=== PATIENT | male | born 1980 | race Caucasian/White ===

== ENCOUNTER 2020-11-09 12:58 | Emergency (ER) | payer OTHER, SELFPAY ==
[2020-11-09 13:04] VITALS: BP 140/83; PULSE 87; RESP 14; TEMP 36.7; O2SAT 100
[2020-11-09 13:13] VITALS: BP 140/83; PULSE 87; RESP 14; TEMP 36.7; O2SAT 100
--- NOTE | 2020-11-09 13:16 | ED.SKABFB ---
HPI - Skin/Abscess/Foreign Bdy General Chief complaint: Skin/Abscess/Foreign Body Stated complaint: right ankle boil Source: patient Mode of arrival: ambulatory Limitations: no limitations History of Present Illness HPI narrative: Patient is a 40-year-old male who presents complaining of abscess to right ankle. Patient reports abscess x2 weeks, with increasing redness and tenderness over the past day. Patient reports you and his have been intermittently squeezing area with drainage of pus at times. He denies fever, chills or body aches. He denies all other complaints at this time. complaint: abscess/boil Related Data Allergies Allergy/AdvReac Type Severity Reaction Status Date / Time Penicillins Allergy Unknown hives Verified 11/09/20 13:13 Review of Systems Review of Systems: Narrative: CONSTITUTIONAL: Denies fever, chills, or sweats. EYES: Denies visual changes, redness, or discharge. ENT: Denies rhinorrhea, congestion, sore throat, or otalgia. CARDIOVASCULAR: Denies chest pain, palpitations, or edema. RESPIRATORY: Denies cough or dyspnea. GASTROINTESTINAL: Denies abdominal pain, nausea, vomiting, or diarrhea. GENITOURINARY: Denies dysuria or hematuria. SKIN: Reports abscess to right lower extremity x2-week MUSCULOSKELETAL: Denies back pain, joint pain, or myalgia. NEUROLOGIC: Denies headache, numbness, dizziness, or weakness. PSYCHIATRIC: Denies anxiety or depression. [facility] Social History Social History (Updated 11/09/20 @ 13:19 by TERENCE Childs) Smoking status: Current every day smoker Tobacco type: cigarettes Alcohol intake: current Alcohol use details: Occasional Substance use: never Living arrangements: with family Comments At the time of signature, I have reviewed and agree with nursing past medical, surgical, social, and family history unless otherwise noted. Please see nursing chart for further information. There is no relevant family history pertinent to the presenting complaint. Exam Narrative: Exam Narrative: GENERAL: Well-appearing, well-nourished, and in no acute distress. HEAD: Normocephalic, atraumatic. EYES: EOMI. No redness or drainage. Conjunctiva are normal. ENT: Mucous membranes pink and moist. CHEST: No respiratory distress. HEART: Regular rate and rhythm. EXTREMITIES: Normal range of motion. No edema. SKIN: Approximate 3 x 3 cm area of erythema and warmth to right medial lower leg, area of fluctuation and induration at center. NEURO: No focal deficits. Alert and oriented x3. Gait steady. PSYCH: Normal affect. No signs of depression or anxiety. Course Vital Signs Vital signs: Vital Signs Temperature 36.7 C 11/09/20 13:04 Pulse Rate 87 11/09/20 13:04 Respiratory Rate 14 11/09/20 13:04 Blood Pressure 140/83 11/09/20 13:04 Pulse Oximetry 100 11/09/20 13:04 Temperature 36.7 C 11/09/20 13:13 Pulse Rate 87 11/09/20 13:13 Respiratory Rate 14 11/09/20 13:13 Blood Pressure 140/83 11/09/20 13:13 Pulse Oximetry 100 11/09/20 13:13 Reviewed. Patient has been instructed to follow-up with his PCP regarding his blood pressure. Procedures Abscess I/D lower extremity: Date of Incision: 11/09/20 Time of Incision: 13:35 Side (if applicable): right Sedation/analgesia: none Local Anesthetic: lidocaine 1% Amount of anesthesia used (mL): 4 Technique: incised with #11 blade Amount of fluid expressed (mL): 2 Irrigation: Yes Packing used?: plain I&D Results: Pus and Blood Abcess I&D Additional Comments: 4 x 4 and tape as dressing. Wound care discussed with patient and family. MDM - Skin/Abscess/Foreign Bdy MDM Narrative Medical decision making narrative: Incision and drainage performed on patient's right lower extremity. Discussed wound care. Patient started on antibiotics at this time for surrounding cellulitis. Patient is aware of red flags and if there
== END 2020-11-09 13:45 | disposition home or self-care (01) ==
PROVIDERS: Emergency Provider Nurse Practitioner; PCP Internal Medicine
DX: L03.115 Cellulitis of right lower limb (principal); L02.415 Cutaneous abscess of right lower limb; F17.210 Nicotine dependence, cigarettes, uncomplicated
CPT/HCPCS: 10061; 87070; 87205; 99213; G0463

== ENCOUNTER → 2022-06-11 10:02 | Outpatient (CLI) | payer OTHER, SELFPAY ==
--- NOTE | ~2022-06-11 | XR_ITS ---
Clinical Indication: Pneumonia, cough PA and lateral views of the chest: Comparison: None Findings: The lungs are clear, without evidence of focal consolidation or pleural effusion. Possible COPD. Cardiomediastinal silhouette is within normal limits. Bones and soft tissues are unremarkable. Impression: Possible COPD. Clear lungs. Reviewed, dictated and finalized at location . [facility] Impression: Possible COPD. Clear lungs.
== END ==
PROVIDERS: PCP Family Medicine; Visit Provider Family Medicine
DX: J39.8 Other specified diseases of upper respiratory tract (principal)
CPT/HCPCS: 71046

== ENCOUNTER 2023-01-07 09:21 | Emergency (ER) | payer BC, SELFPAY ==
--- NOTE | ~2023-01-07 | XR_ITS ---
EXAMINATION: XR chest 2V DATE: 01/07/2023 10:38 INDICATION: Dizziness TECHNIQUE: PA and lateral views of the chest are obtained. COMPARISON: 06/11/2022 FINDINGS: The lungs are free of acute opacities. No pleural effusion or pneumothorax. The cardiomedia stinal silhouette is normal. The visualized bones and soft tissues are unremarkable. IMPRESSION: 1. No acute cardiopulmonary abnormality. Reviewed, dictated and finalized at location L.
[2023-01-07 09:32] VITALS: BP 139/88; PULSE 71; RESP 20; TEMP 36.7; O2SAT 100
--- NOTE | 2023-01-07 09:57 | ED.DIZZY ---
HPI - Dizziness General Chief Complaint: Dizziness Stated Complaint: Dizziness Time Seen by Provider: 01/07/23 10:00 Source: patient Mode of arrival: ambulatory Limitations: no limitations History of Present Illness HPI Narrative: 42-year-old male with a history of COPD presented for complaint of waking in the morning with dizziness and fatigue since yesterday. [place] in to work. He states he rested and felt somewhat better yesterday evening. Today he endorses waking feeling dizzy, headache, body aches, and fatigue. Denies chest pain, palpitations, shortness of breath from baseline, nausea, vomiting or diarrhea. He has not taken anything for symptoms. He states he is concerned about his blood pressure and blood sugar. Related Data Allergies Allergy/AdvReac Type Severity Reaction Status Date / Time Penicillins Allergy Unknown hives Verified 01/07/23 09:53 Review of Systems Review of Systems: CONSTITUTIONAL: Reports fatigue Denies body aches, fever, chills, or sweats. EYES: Denies visual changes, redness, or discharge. ENT: Denies rhinorrhea, congestion, sore throat, or otalgia. CARDIOVASCULAR: Denies chest pain, palpitations, or edema. RESPIRATORY: Reports cough, denies sob, wheezing. GASTROINTESTINAL: Denies abdominal pain, nausea, vomiting, or diarrhea. GENITOURINARY: Denies dysuria or hematuria. SKIN: Denies rash, itching, or wounds. MUSCULOSKELETAL: Denies back pain, joint pain, or myalgia. NEUROLOGIC: Reports dizziness Denies headache, numbness, tingling, or weakness. All systems reviewed & are unremarkable except as noted in HPI and below [facility] Past Medical History Medical History (Updated 01/07/23 @ 11:08 by Daisy Farias APRN) COPD (chronic obstructive pulmonary disease) Nicotine dependence, cigarettes, uncomplicated Family History Family History Sibling Cerebrovascular accident Social History Social History Social History: Caffeine-coffee/soda Smoking packs per day: 1 Smoking cigarettes per day: 20.0 Years smoked: 27 Smoking pack-years: 27.00 Smoking status: Current every day smoker Tobacco type: cigarettes Alcohol intake: current Alcohol use details: 6-8 drinks nightly beer. Substance use: never Lack of Transportation: No Lack of Food: Never True Current Housing: I Have Housing Concerned About Future Housing: No Difficulty Paying Gas/Electric Bills: No Difficulty Paying for Meds: No Currently Unemployed: No Education: High School Diploma/GED Difficulty w/ Childcare or Family Care: No Living arrangements: with family Comments At time of signature, I have reviewed and agree with nursing past medical, surgical, social and family history unless otherwise noted. Please see nursing chart for further information. There is no relevant family history pertinent to the presenting complaint Exam Narrative: GENERAL: mildly ill-appearing, in no acute distress. Appears older than stated age EYES: EOMI. No redness or drainage. Conjunctivae normal. ENT: Mucous membranes pink and moist. No rhinorrhea. TMs normal bilaterally. Throat normal. Uvula midline. NECK: Normal AROM. Supple. CHEST: No respiratory distress. Coarse with wheezing to all [place]. No cough. Speaks full sentences. HEART: Regular rate and rhythm. No murmur appreciated. ABDOMEN: Soft, nontender, nondistended, normal active bowel sounds. EXTREMITIES: Normal range of motion. No edema. SKIN: Warm, dry, no rash. Capillary refill normal. Normal skin turgor. NEURO: Alert and oriented x3. Gait steady. Course Course Emergency Course: Patient is aware of diagnosis, understands and agrees to treatment plan. Anticipatory guidance given. Patient agrees to follow-up as directed and is aware o
--- NOTE | 2023-01-07 10:11 | ECG_ITS ---
Measurements Intervals [place] Rate: 69 P: 69 UT: 116 QRS: 68 QRSD: 88 T: 72 QT: 351 QTc: 377 Interpretive Statements SINUS RHYTHM WITH SHORT UT INTERVAL NORMAL ELECTROCARDIOGRAM NO PREVIOUS ECG AVAILABLE FOR COMPARISON Electronically Signed On 01-07-2023 14:32:14 CDT by Reji Faustin M.D.
[2023-01-07 10:17] LABS: Glucose Point of Care 86 mg/dl (65-105)
== END 2023-01-07 11:11 | disposition home or self-care (01) ==
PROVIDERS: Emergency Provider Nurse Practitioner Family; PCP Family Medicine
DX: R42 Dizziness and giddiness (principal); J40 Bronchitis, not specified as acute or chronic; F17.210 Nicotine dependence, cigarettes, uncomplicated; J44.9 Chronic obstructive pulmonary disease, unspecified
CPT/HCPCS: 71046; 82948; 93005; 99213; G0463

== ENCOUNTER 2023-06-18 10:11 | Outpatient (CLI) | payer BC, SELFPAY ==
[2023-06-18 12:14] LABS: Basophils Absolute Auto 0.1 K/mm3 (0.0-0.1); Basophils Percent Auto 0.8 % (0.2-1.2); Eosinophils Absolute Auto 0.1 K/mm3 (0-0.3); Eosinophils Percent Auto 1.4 % (0-4.4); Hemoglobin 16.7 g/dL (14.0-18.0); Immature Granulocyte Absolute 0.02 K/mm3 (0.00-0.031); Immature Granulocyte Percent A 0.3 % (0-0.5); Lymphocytes Absolute Auto 1.43 K/mm3 (0.9-3.2); Lymphocytes Percent Auto 22.6 % (18.3-44.2); Mean Corpuscular HGB Conc 34.1 g/dl (32-36); Mean Corpuscular Hemoglobin 33.5 pg (26-34); Mean Corpuscular Volume 98.4 fl (80-100); Mean Platelet Volume 11.4 fl (7.4-10.4); Monocytes Absolute Auto 0.7 K/mm3 (0.1-0.6); Monocytes Percent Auto 11.4 % (2.6-8.5); Neutrophils Percent Auto 63.5 % (45.5-73.1); Platelet Count Result 288 k/mm3 (150-375); Red Blood Count 4.98 M/mm3 (4.6-6.20); Red Cell Distribution Width 12.2 % (11.5-14.5); White Blood Count 6.3 K/mm3 (4.5-10.0)
[2023-06-18 12:18] LABS: Alanine Aminotransferase 20 U/L (6-50); Albumin Level 4.4 g/dL (3.5-5.1); Alkaline Phosphatase 56 U/L (38-126); Anion Gap 4 mmol/L (8-16); Aspartate Amino Transferase 57 U/L (17-59); Bilirubin,Total 0.8 mg/dL (0.2-1.3); Blood Urea Nitrogen 7 mg/dL (9-20); Calcium 9.4 mg/dL (8.4-10.2); Carbon Dioxide 31 mmol/L (22-30); Chloride 103 mmol/L (98-107); Cholesterol 137 mg/dL (0-200); Estimated Glomerular Filt Rate > 60; Glucose 102 mg/dL (65-110); HDL Direct 88 mg/dL; Potassium 4.6 mmol/L (3.4-5.0); Sodium 138 mmol/L (137-145); Triglycerides < 30 mg/dL (<150)
[2023-06-18 12:29] LABS: LDL Cholesterol Direct 38 mg/dL
[2023-06-18 13:52] LABS: Thyroid Stimulating Hormone Reflex 0.346 uIU/mL (0.465-4.68)
[2023-06-18 16:33] LABS: Total Triiodothyronine (T3) 1.48 NG/ML (0.97-1.69)
== END 2023-06-18 10:12 | disposition home or self-care (01) ==
LOC: ANHGOSHLAB 10:12
PROVIDERS: PCP Family Medicine; Visit Provider Family Medicine
DX: Z13.228 Encounter for screening for other metabolic disorders (principal); Z13.29 Encounter for screening for other suspected endocrine disorder; Z13.220 Encounter for screening for lipoid disorders; R53.83 Other fatigue
CPT/HCPCS: 36415; 80053; 80061; 84439; 84443; 84480; 85025

== ENCOUNTER 2024-01-14 11:00 | Outpatient (CLI) | payer BC, SELFPAY ==
[2024-01-14 15:19] LABS: Thyroid Stimulating Hormone 0.422 uIU/mL (0.465-4.680)
[2024-01-14 15:52] LABS: Free T4 Free Thyroxine 0.98 ng/mL (0.78-2.19)
[2024-01-24 20:28] LABS: Thyroid Stimulating Immunoglob <89 % baseline (<140)
[2024-01-25 18:30] LABS: Thyrotropin Receptor Antibody <1.00 IU/L (< OR = 2.00)
== END 2024-01-14 11:01 | disposition home or self-care (01) ==
LOC: ANHGOSHLAB 11:01
PROVIDERS: PCP Family Medicine; Visit Provider Family Medicine
DX: E05.90 Thyrotoxicosis, unspecified without thyrotoxic crisis or storm (principal)
CPT/HCPCS: 36415; 83519; 84439; 84443; 84445

== ENCOUNTER 2024-02-04 11:47 | Emergency (ER) | payer BC, SELFPAY ==
[2024-02-04 11:52] VITALS: BP 135/78; PULSE 70; RESP 16; TEMP 36.8; O2SAT 99
--- NOTE | 2024-02-04 14:17 | ED.BACK ---
HPI - Back Pain/Injury General Chief Complaint: Back Pain/Injury Stated Complaint: Low Back Pain/Right Side Time Seen by Provider: 02/04/24 11:59 Source: patient and RN notes reviewed Mode of arrival: ambulatory Limitations: no limitations History of Present Illness HPI Narrative: Patient presents today complaining of right low back pain x1 week. He denies injury or trauma. He does report some occasional dysuria, which he states can happen if he does not drink enough water. Denies radiation of the pain to his legs or abdomen. Denies concerns for sexually transmitted infections. Denies hematuria, frequency, urgency. Patient has tried some Tylenol and Aleve with some mild relief. Currently rates his pain 2/10, which increases when he lays flat. Related Data Allergies Allergy/AdvReac Type Severity Reaction Status Date / Time Penicillins Allergy Unknown hives Verified 02/04/24 12:18 Review of Systems Review of Systems: CONSTITUTIONAL: Denies body aches, fever, chills, or sweats. EYES: Denies visual changes, redness, or discharge. ENT: Denies rhinorrhea, congestion, sore throat, or otalgia. CARDIOVASCULAR: Denies chest pain, palpitations, or edema. RESPIRATORY: Denies cough or dyspnea. GASTROINTESTINAL: Denies abdominal pain, nausea, vomiting, or diarrhea. GENITOURINARY: Denies hematuria.+ occasional dysuria SKIN: Denies rash, itching, or wounds. MUSCULOSKELETAL: Denies joint pain, or myalgia.+ back pain NEUROLOGIC: Denies headache, numbness, tingling, or weakness. PSYCH: Denies depression or anxiety. [facility] Past Medical History Medical History COPD (chronic obstructive pulmonary disease) Nicotine dependence, cigarettes, uncomplicated Family History Family History Sibling Cerebrovascular accident Social History Social History Social History: Caffeine-coffee/soda Smoking packs per day: 1 Smoking cigarettes per day: 20.0 Years smoked: 27 Smoking pack-years: 27.00 Smoking status: Current every day smoker Tobacco type: cigarettes Alcohol intake: current Alcohol use details: 6 drinks nightly beer. Substance use: never Substance use type: does not use Lack of Transportation: No Lack of Food: Never True Current Housing: I Have Housing Concerned About Future Housing: No Difficulty Paying Gas/Electric Bills: No Difficulty Paying for Meds: No Currently Unemployed: No Education: High School Diploma/GED Difficulty w/ Childcare or Family Care: No Living arrangements: with family Comments At time of signature, I have reviewed and agree with nursing past medical, surgical, social and family history unless otherwise noted. Please see nursing chart for further information. There is no relevant family history pertinent to the presenting complaint Exam Narrative: GENERAL: Well-appearing, well-nourished, and in no acute distress. HEAD: Normocephalic, atraumatic. EYES: EOMI. No redness or drainage. Conjunctivae normal. ENT: Mucous membranes pink and moist. NECK: Normal AROM. CHEST: No respiratory distress. MUSCULOSKELETAL: No bony tenderness of the thoracic or lumbar spine. Tenderness to the right lower lumbar paraspinal muscles. No tenderness to the left. No tenderness to the SI joints. Distal sensation intact. Saddle sensation intact. Capillary refill normal. Plantar flexion and dorsiflexion equal and strong against resistance. Patellar reflexes normal. EXTREMITIES: Normal range of motion. No edema. SKIN: Warm, dry, no rash. Capillary refill normal. Normal skin turgor. NEURO: No focal deficits. Alert and oriented x3. Gait steady. PSYCH: Normal affect. No signs of depression or anxiety. Course Course Level of Care: Express Care Visit Vital Signs Vital signs: Vital Signs Temperatur
[2024-02-07 14:24] LABS: EDUAAPPEAR Clear; EDUABILI Negative (Negative); EDUABLOOD Negative (Negative); EDUACOLOR1 Yellow; EDUAGLUCOSE Negative (Negative); EDUAKETONE Negative (Negative); EDUALEUKO Negative (Negative); EDUANITRATE Negative (Negative); EDUAPROTEIN Negative (Negative); EDUAUROBILI 0.2
== END 2024-02-04 12:28 | disposition home or self-care (01) ==
PROVIDERS: Emergency Provider Nurse Practitioner; PCP Family Medicine
DX: S39.012A Strain of muscle, fascia and tendon of lower back, initial encounter (principal); X58.XXXA Exposure to other specified factors, initial encounter; J44.9 Chronic obstructive pulmonary disease, unspecified; F17.210 Nicotine dependence, cigarettes, uncomplicated
CPT/HCPCS: 81003; 99213; G0463

== ENCOUNTER 2024-04-16 09:16 | Emergency (ER) | payer BC, SELFPAY ==
--- NOTE | ~2024-04-16 | XR_ITS ---
EXAMINATION: XR chest 2V DATE: 04/16/2024 10:04 INDICATION: Cough. TECHNIQUE: Frontal and lateral views of the chest were obtained on 3 radiographs. COMPARISON: Chest 2 views 12/28/2022 FINDINGS: There is no pneumonia, pleural effusion, or pneumothorax. The heart size is normal. IMPRESSION: 1. No acute cardiopulmonary disease. Reviewed, dictated and finalized at location A. [facility]
[2024-04-16 09:27] VITALS: BP 113/79; PULSE 81; RESP 20; TEMP 36.8; O2SAT 98
--- NOTE | 2024-04-16 10:15 | ED.GENADULT ---
HPI - General Adult General Chief complaint: Upper Respiratory Infection Stated complaint: Tightness in Chest/Cough Source: patient Mode of arrival: ambulatory Limitations: no limitations History of Present Illness HPI narrative: Patient presents for evaluation of sick symptoms. Symptom onset 3 days ago. Symptoms include cough, shortness of breath, hot flashes and chills. No nausea, vomiting, diarrhea, sore throat. No recent sick contacts to his knowledge. He smokes 1 pack per day. He has an underlying history of emphysema. He has been using an albuterol inhaler for his symptoms. Related Data Home Medications Medication Instructions Recorded Confirmed albuterol sulfate 90 mcg/actuation 2 puff inhalation QID PRN 04/16/24 04/16/24 aerosol inhaler Shortness Of Breath Or Wheezing fluticasone fur. 200 mcg-umeclid 1 inh inhalation DAILY 04/16/24 04/16/24 62.5 mcg-vilant 25 mcg inhalat.powder (Trelegy Ellipta) umeclidinium 62.5 mcg-vilanterol 1 inh inhalation DAILY 04/16/24 04/16/24 25 mcg/actuation powdr for inhalation (Anoro Ellipta) Allergies Allergy/AdvReac Type Severity Reaction Status Date / Time Penicillins Allergy Unknown hives Verified 04/16/24 09:37 Review of Systems Review of Systems: CONSTITUTIONAL: Reports hot flashes and chills EYES: Denies visual changes, redness, or discharge. ENT: Denies rhinorrhea, congestion, sore throat, or otalgia. CARDIOVASCULAR: Denies chest pain, palpitations, or edema. RESPIRATORY: Reports cough and shortness of breath. GASTROINTESTINAL: Denies abdominal pain, nausea, vomiting, or diarrhea. GENITOURINARY: Denies dysuria or hematuria. SKIN: Denies rash or itching. MUSCULOSKELETAL: Denies back pain, joint pain, or myalgia. NEUROLOGIC: Denies headache, numbness, dizziness, or weakness. PSYCHIATRIC: Denies anxiety or depression. [facility] Past Medical History Medical History COPD (chronic obstructive pulmonary disease) Nicotine dependence, cigarettes, uncomplicated Surgical History Surgical History No pertinent past surgical history Family History Family History Sibling Cerebrovascular accident Social History Social History Social History: Caffeine-coffee/soda Smoking packs per day: 1 Smoking cigarettes per day: 20.0 Years smoked: 27 Smoking pack-years: 27.00 Smoking status: Current every day smoker Tobacco type: cigarettes Alcohol intake: current Alcohol use details: 6 drinks nightly beer. Substance use: never Substance use type: does not use Lack of Transportation: No Lack of Food: Never True Current Housing: I Have Housing Concerned About Future Housing: No Difficulty Paying Gas/Electric Bills: No Difficulty Paying for Meds: No Currently Unemployed: No Education: High School Diploma/GED Difficulty w/ Childcare or Family Care: No Living arrangements: with family Exam Narrative: GENERAL: Well-appearing, well-nourished, and in no acute distress. HEAD: Normocephalic, atraumatic. EYES: PERRLA and EOMI. ENT: Nares clear, no rhinorrhea or epistaxis. Mucous membranes moist. Oropharynx without tonsillar hypertrophy exudate or other lesions. Bilateral TMs pearly hayes nonbulging NECK: Supple. No adenopathy or masses. No carotid bruits or JVD CHEST: wheezing and rales noted on exam. Cough present HEART: Regular rate and rhythm. No murmur heard. Normal peripheral pulses. ABDOMEN: Soft, nontender, nondistended, normal active bowel sounds. EXTREMITIES: Normal range of motion. No edema. SKIN: Warm, dry, no rash. NEURO: No focal deficits. Alert and oriented x3. PSYCH: Normal mood and affect. Course Course Emergency Course: This is a 44-year-old male who presented for evaluation of respiratory symptoms. Chest x-ray was negative. His exam is consistent with exacerbation of his emphysema. He was given Solu-Medrol and a breathing treatment here. He became little jittery. I offered to monitor him here but he requested his discharge papers. Will discharge with prednisone and doxycycline due to his smoking status. He was advised not to smoke. He should follow up with PCP. He has albuterol at home. Go to the ER for worsening symptoms. Pt in agreement with plan of care. Level of Care: Express Care Visit Vital Signs Vital signs: Vital Signs Temperature 36.8 C 04/16/24 09:27 Pulse Rate 81 04/16/24 09:27 Respiratory Rate 20 04/16/24 09:27 Blood Pressure 113/79 04/16/24 09:27 Pulse Oximetry 98 04/16/24 09:27 Temperature 36.8 C 04/16/24 09:27 Pulse Rate 81 04/16/24 09:27 Respiratory Rate 20 04/16/24 09:27 Blood Pressure 113/79 04/16/24 09:27 Pulse Oximetry 98 04/16/24 09:27 Medical Decision Making Vital Signs Vital Signs: Vital Signs Temperature 36.8 C 04/16/24 09:27 Pulse Rate 81 04/16/24 09:27 Respiratory Rate 20 04/16/24 09:27 Blood Pressure 113/79 04/16/24 09:27 Pulse Oximetry 98 04/16/24 09:27 Temperature 36.8 C 04/16/24 09:27 Pulse Rate 81 04/16/24 09:27 Respiratory Rate 20 04/16/24 09:27 Blood Pressure 113/79 04/16/24 09:27 Pulse Oximetry 98 04/16/24 09:27 Imaging Data Radiologist's impression: EXAMINATION: XR chest 2V DATE: 04/16/2024 10:04 INDICATION: Cough. TECHNIQUE: Frontal and lateral views of the chest were obtained on 3 radiographs. COMPARISON: Chest 2 views 12/28/2022 FINDINGS: There is no pneumonia, pleural effusion, or pneumothorax. The heart size is normal. IMPRESSION: 1. No acute cardiopulmonary disease. Discharge Plan Discharge Clinical Impression: Acute exacerbation of emphysema Patient Disposition: Home, Self-Care Condition: Stable Instructions: Antibiotic Form, How to Stop Smoking (ED), Emphysema (DC) Patient Language: Welsh Prescriptions: New doxycycline hyclate 100 mg capsule 100 mg PO BID Qty: 20 0RF prednisone 50 mg tablet 50 mg PO DAILY Qty: 5 0RF No Action albuterol sulfate 90 mcg/actuation Hfa Aerosol Inhaler 2 puff INHALATION QID PRN (Reason: Shortness Of Breath Or Wheezing) Trelegy Ellipta 200-62.5-25 mcg Blister With Device 1 inh INHALATION DAILY Anoro Ellipta 62.5-25 mcg/actuation Blister With Device 1 inh INHALATION DAILY Follow-up/Referrals: Lamont Sandhu, [Primary Care Provider] - Time of Disposition: 10:52
[2024-04-16] MEDS: methylPREDNISolone SOD SUCC 125 MG VIAL IM (10:25)
--- NOTE | 2024-04-16 10:25 | PC.NURSE ---
PT SHAKY DURING TREATMENT AND FEELS SWEATY. REMOVED SWEATSHIRT. TEMP 98.0 AND BP 124/96
[2024-04-16] MEDS: IPRATROPIUM 0.5 MG/ALBUTEROL SULFATE 2.5 MG AMPUL.NEB 3 ML INHALATION (10:26)
== END 2024-04-16 10:55 | disposition home or self-care (01) ==
PROVIDERS: Emergency Provider Nurse Practitioner; PCP Family Medicine
DX: J44.1 Chronic obstructive pulmonary disease with (acute) exacerbation (principal); F17.210 Nicotine dependence, cigarettes, uncomplicated
CPT/HCPCS: 71046; 96372; 99213; G0463; J2919